=== PATIENT | female | born 1965 | race Caucasian/White ===

== ENCOUNTER 2017-02-01 10:17 | Emergency (ER) | payer OTHER ==
[~2017-02-01] VITALS: Ht 170.2 cm; Wt 140.0 kg
[2017-02-01 10:18] VITALS: BP 132/79
[2017-02-01] MEDS ORDERED: GEOD40CA2 PO (10:25)
[2017-02-01] MEDS ORDERED: PAXI20TA29 PO (10:25)
[2017-02-01] MEDS ORDERED: BREO1INH INH (10:25)
[2017-02-01] MEDS ORDERED: IBUPROFEN 800 MG TAB PO ONE (11:00)
--- NOTE | 2017-02-01 13:23 | REP ---
RIGHT WRIST, FOUR VIEWS: There is no evidence of an acute fracture, dislocation or intrinsic bone disease. IMPRESSION: No fracture or dislocation. Signed by Hector Barahona MD 02/01/2017 07:16 P
== END 2017-02-01 11:29 | disposition home or self-care (01) ==
LOC: M ED 10:17
DX: S60.211A Contusion of right wrist, initial encounter (principal); X58.XXXA Exposure to other specified factors, initial encounter; Y92.099 Unspecified place in other non-institutional residence as the place of occurrence of the external cause; Y93.9 Activity, unspecified; Y99.9 Unspecified external cause status; J45.909 Unspecified asthma, uncomplicated; F41.9 Anxiety disorder, unspecified; J43.9 Emphysema, unspecified; Z79.899 Other long term (current) drug therapy

== ENCOUNTER → 2017-03-23 | Outpatient (CLI) | payer OTHER ==
[~2017-03-23] MED LIST: BREO1INH INH; GEOD40CA2 PO; PAXI20TA29 PO
--- NOTE | 2017-03-23 15:59 | REP ---
BILATERAL MAMMOGRAM: Bilateral mammography performed in the MLO and CC projections. Comparison made with multiple prior exams the most recently 01/18/2016. Moderate heterogeneous fibroglandular tissue is again seen bilaterally. In the upper outer quadrant of the right breast there appears to be a new 6 mm nodular density. No other new mass or clustered microcalcifications are seen. Metallic clip is again seen in the upper outer quadrant of each breast. Scattered tiny calcifications are seen diffusely bilaterally. IMPRESSION: BI-RADS/ACR category 0 mammogram, incomplete. Additional imaging and/or prior mammograms for comparison. ACR 0 incomplete. New 6 mm nodular density upper outer quadrant right breast. Recommend spot compression views and ultrasound to further evaluate. This mammogram was interpreted with the aid of an FDA-approved computer-aided detection system. The patient states she has not had a clinical breast exam in over a year. The patient letter being requested is M0. Signed by Hector Barahona MD 03/23/2017 04:22 P
== END ==
LOC: M RAD 14:19
PROVIDERS: ATTEND Nurse Practitioner Adult Health
DX: Z12.31 Encounter for screening mammogram for malignant neoplasm of breast (principal); R92.8 Other abnormal and inconclusive findings on diagnostic imaging of breast

== ENCOUNTER → 2017-03-26 | Outpatient (CLI) | payer OTHER ==
--- NOTE | 2017-03-26 14:02 | REP ---
DIAGNOSTIC MAMMOGRAM RIGHT BREAST WITH RIGHT BREAST ULTRASOUND: Diagnostic mammogram right breast performed with multiple spot compression views. These confirm the presence of a well-defined round nodule at 9 -o'clock position of the right breast measuring about 6 mm in diameter. Real-time sonographic evaluation of the right breast performed in the region of 9-o'clock position. There is a simple cyst which measures 6 mm in diameter corresponding to the mammographic abnormality. This is benign. IMPRESSION: BI-RADS/ACR category 2 mammogram. Benign finding(s). Routine annual screening mammography (for women over age 40). The nodule seen at 9 -o'clock position right breast measuring 6 mm in diameter demonstrates smooth, well-defined margins and represents a simple cyst by ultrasound. This is ACR 2 benign. Recommend followup mammogram in 1 year. Patient letter M1. ? Signed by Hector Barahona MD 03/26/2017 04:56 P
== END ==
LOC: M RAD 12:41
PROVIDERS: ATTEND Nurse Practitioner Adult Health
DX: R92.8 Other abnormal and inconclusive findings on diagnostic imaging of breast (principal)
CPT/HCPCS: 76642; G0206

== ENCOUNTER → 2017-04-06 | Outpatient (REF) | payer OTHER, MEDICAID | LOC: M SMT 16:56 | PROVIDERS: ATTEND Nurse Practitioner Women's Health | DX: N39.46 Mixed incontinence (principal) ==

== ENCOUNTER → 2017-05-18 | Outpatient (CLI) | payer OTHER | LOC: M RAD 10:59 | DX: J44.9 Chronic obstructive pulmonary disease, unspecified (principal) | CPT/HCPCS: 71046 ==

== ENCOUNTER → 2017-05-19 | Outpatient (REF) | payer OTHER ==
[2017-05-19 13:59] LABS: APPEARANCE, URINE CLOUDY (CLEAR); BACTERIA, URINE AUTO NEGATIVE (NEGATIVE); BILIRUBIN, URINE AUTO NEGATIVE (NEGATIVE); BLOOD, URINE BLOOD NEGATIVE (NEGATIVE); COLOR, URINE YELLOW (YELLOW); GLUCOSE, URINE (UA) AUTO NEGATIVE (NEGATIVE); KETONE, URINE AUTO TRACE mg/dL (NEGATIVE); LEUKOCYTE ESTERASE, URINE AUTO 3+ (NEGATIVE); MUCUS, URINE SMALL (NEGATIVE); NITRITE, URINE AUTO NEGATIVE (NEGATIVE); PROTEIN, URINE AUTO NEGATIVE (NEGATIVE); RBC, URINE AUTO 13 /HPF (0-3); SPECIFIC GRAVITY URINE AUTO 1.012 (1.002-1.035); SQUAMOUS EPITHELIAL CELL UR AU 12 /HPF (0-6); UROBILINOGEN, URINE AUTO 0.2 mg/dL (0.0-2.0); WBC, URINE AUTO 10 /HPF (0-3)
== END ==
LOC: M SMT 13:36
DX: R31.29 Other microscopic hematuria (principal)

== ENCOUNTER → 2017-06-10 | Outpatient (CLI) | payer OTHER ==
[~2017-06-10] MED LIST changes: -BREO1INH INH; -GEOD40CA2 PO; +ISOVUE-370 76% 100ML VIAL (Q9967) As Ordered; -PAXI20TA29 PO
== END ==
LOC: M RAD 11:00
DX: R31.29 Other microscopic hematuria (principal)
CPT/HCPCS: Q9967

== ENCOUNTER → 2017-07-28 | Outpatient (REF) | payer OTHER, MEDICAID ==
[2017-07-28 19:06] LABS: ESTIMATED AVERAGE GLUCOSE 120 MG/DL (60-110); HEMOGLOBIN A1c 5.8 %
[2017-07-28 19:10] LABS: CHOLESTEROL LEVEL 236 MG/DL (<200); CHOLESTEROL RISK RATIO 3.746 (<5); HDL CHOLESTEROL 63 MG/DL (>40); LDL CHOLESTEROL 148.4 MG/DL (<100); NON-HDL-C 173 MG/DL; TRIGLYCERIDES LEVEL 123 MG/DL (<150)
[2017-07-28 19:11] LABS: TOTAL 25(OH) VITAMIN D 41.8 NG/ML (30.0-100.0)
== END ==
LOC: M LAB REF 17:50
DX: Z13.9 Encounter for screening, unspecified (principal)

== ENCOUNTER → 2017-08-04 | Outpatient (REF) | payer OTHER ==
[2017-08-04 18:41] LABS: APPEARANCE, URINE CLEAR (CLEAR); BACTERIA, URINE AUTO 1+ (NEGATIVE); BILIRUBIN, URINE AUTO NEGATIVE (NEGATIVE); BLOOD, URINE BLOOD NEGATIVE (NEGATIVE); COLOR, URINE YELLOW (YELLOW); GLUCOSE, URINE (UA) AUTO NEGATIVE (NEGATIVE); KETONE, URINE AUTO TRACE mg/dL (NEGATIVE); LEUKOCYTE ESTERASE, URINE AUTO 3+ (NEGATIVE); MUCUS, URINE SMALL (NEGATIVE); NITRITE, URINE AUTO NEGATIVE (NEGATIVE); PROTEIN, URINE AUTO NEGATIVE (NEGATIVE); RBC, URINE AUTO 6 /HPF (0-3); SPECIFIC GRAVITY URINE AUTO 1.017 (1.002-1.035); SQUAMOUS EPITHELIAL CELL UR AU 2 /HPF (0-6); TRANSITIONAL EPITHELIAL AUTO <1 /HPF; UROBILINOGEN, URINE AUTO 0.2 mg/dL (0.0-2.0); WBC, URINE AUTO 22 /HPF (0-3)
== END ==
LOC: M SMT 17:13
DX: N39.0 Urinary tract infection, site not specified (principal)

== ENCOUNTER 2017-11-20 12:20 | Emergency (ER) | payer OTHER | END 2017-11-20 15:00 | disposition home or self-care (01) | LOC: M ED 12:20 | DX: M43.17 Spondylolisthesis, lumbosacral region (principal); M43.16 Spondylolisthesis, lumbar region; M54.16 Radiculopathy, lumbar region; J45.909 Unspecified asthma, uncomplicated; J44.9 Chronic obstructive pulmonary disease, unspecified; F41.9 Anxiety disorder, unspecified; Z79.899 Other long term (current) drug therapy | CPT/HCPCS: 72110 ==

== ENCOUNTER → 2018-08-27 | Outpatient (CLI) | payer OTHER ==
[~2018-08-27] MED LIST changes: +BREO1INH INH; +GABA-843; +GEOD40CA13 PO; -ISOVUE-370 76% 100ML VIAL (Q9967) As Ordered; +MELO15TA28; +PAXI20TA29 PO; +ULTR50TA8 PO; +VENTAER
--- NOTE | 2018-08-27 10:30 | REP ---
LEFT SHOULDER: Three views. HISTORY: Pain. FINDINGS: Three views of the left shoulder demonstrate normal alignment of the glenohumeral and acromioclavicular joints. There is a small bone island in the humeral head on the left. Periarticular soft tissues are unremarkable. There are is a large lymph node calcification in the left hilus noted incidentally. IMPRESSION: Negative radiographs of the left shoulder. Electronically Signed by Hugh Somers MD 08/27/2018 03:11 P
== END ==
LOC: M RAD 09:29
PROVIDERS: ATTEND Nurse Practitioner Adult Health
DX: M25.512 Pain in left shoulder (principal)

== ENCOUNTER → 2018-10-13 | Outpatient (REF) | payer OTHER ==
[2018-10-13 19:34] LABS: ALBUMIN 3.6 GM/DL (3.2-5.2); ALT/SGPT 18 U/L (12-78); BILIRUBIN,TOTAL 0.1 MG/DL (0.2-1.0); BLOOD UREA NITROGEN 10 MG/DL (7-18); CALCIUM LEVEL 8.6 MG/DL (8.5-10.1); CARBON DIOXIDE LEVEL 26 MEQ/L (21-32); CHLORIDE LEVEL 105 MEQ/L (98-107); CHOLESTEROL LEVEL 176 MG/DL (<200); CHOLESTEROL RISK RATIO 2.885 (<5); CREATININE FOR GFR 0.92 MG/DL (0.55-1.30); GLOMERULAR FILTRATION RATE > 60.0 (>51); GLUCOSE, FASTING 98 MG/DL (70-100); HDL CHOLESTEROL 61 MG/DL (>40); LDL CHOLESTEROL 91 MG/DL (<100); NON-HDL-C 115 MG/DL; POTASSIUM SERUM 4.3 MEQ/L (3.5-5.1); SODIUM LEVEL 138 MEQ/L (136-145); TOTAL PROTEIN 7.3 GM/DL (6.4-8.2); TRIGLYCERIDES LEVEL 122 MG/DL (<150)
[2018-10-13 19:38] LABS: HEMOGLOBIN A1c 5.7 %
[2018-10-13 19:41] LABS: TOTAL 25(OH) VITAMIN D 31.1 NG/ML (30.0-100.0)
== END ==
LOC: M LAB REF 18:09
PROVIDERS: ATTEND Nurse Practitioner Adult Health
DX: Z13.9 Encounter for screening, unspecified (principal)

== ENCOUNTER 2019-06-01 16:39 | Emergency (ER) | payer OTHER ==
[2019-06-01] MEDS ORDERED: ONDANSETRON 4MG/2ML VIAL (J2405) IV ONE (17:30)
--- NOTE | 2019-06-01 18:02 | REP ---
Portable chest, 05:30 p.m., single AP view with the patient sitting: The lung hudson are clear. The cardiac size is normal. The sj, mediastinum, and skeletal structures are unremarkable. Prominent breast shadows superimposed the lower lung zones bilaterally. There is a left lower lobe calcified granuloma, unchanged. Impression: Negative portable chest. Comparison is 05/18/2017. Electronically Signed by Hector Christina MD 06/01/2019 05:54 P
[2019-06-01 18:15] LABS: ALBUMIN 3.3 GM/DL (3.2-5.2); ALT/SGPT 18 U/L (12-78); BILIRUBIN,DIRECT 0.2 MG/DL (0.0-0.2); BILIRUBIN,TOTAL 0.5 MG/DL (0.2-1.0); BLOOD UREA NITROGEN 8 MG/DL (7-18); CALCIUM LEVEL 9.1 MG/DL (8.5-10.1); CARBON DIOXIDE LEVEL 25 MEQ/L (21-32); CHLORIDE LEVEL 102 MEQ/L (98-107); CK-MB VALUE MASS 1.1 NG/ML (<3.6); CPK CREATINE PHOSPHOKINASE 53 U/L (26-192); CREATININE FOR GFR 0.78 MG/DL (0.55-1.30); ETHYL ALCOHOL (ETHANOL) < 0.003 % (0.000-0.010); FREE T4 1.67 NG/DL (0.76-1.46); GLOMERULAR FILTRATION RATE > 60.0 (>51); GLUCOSE, FASTING 99 MG/DL (70-100); MAGNESIUM LEVEL 2.1 MG/DL (1.8-2.4); MB/CK RELATIVE INDEX 2.08 (< OR =4); POTASSIUM SERUM 3.9 MEQ/L (3.5-5.1); SODIUM LEVEL 136 MEQ/L (136-145); TOTAL PROTEIN 7.2 GM/DL (6.4-8.2); TROPONIN I < 0.02 NG/ML (< 0.10)
[2019-06-01] MEDS ORDERED: NS 1,000 ML IV ONE (18:45)
[2019-06-01] MEDS ORDERED: RISP0.5T3 (18:46)
[2019-06-01] MEDS ORDERED: INVE156I (18:46)
[2019-06-01 19:03] LABS: BASO % 0.3 % (0.0-1.0); HEMATOCRIT 43.5 % (36.0-47.0); HEMOGLOBIN 14.5 g/dl (12.0-15.5); LYMPH # 2.4 10^3/uL (1.5-5.0); LYMPH % 17.8 % (24.0-44.0); MEAN CORPUSCULAR HEMOGLOBIN 31.5 pg (27.0-33.0); MEAN CORPUSCULAR HGB CONC 33.3 g/dl (32.0-36.5); MEAN CORPUSCULAR VOLUME 94.6 fl (80.0-96.0); MONO % 7.6 % (0.0-5.0); NEUTROPHILS # 9.9 10^3/uL (1.5-8.5); PLATELET COUNT, AUTOMATED 523 10^3/uL (150-450); WHITE BLOOD COUNT 13.4 10^3/uL (4.0-10.0)
--- NOTE | 2019-06-01 20:09 | ECGEPIP ---
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
[2019-06-01 20:48] VITALS: BP 123/74
== END 2019-06-01 20:49 | disposition home or self-care (01) ==
LOC: M ED 16:39
DX: R53.81 Other malaise (principal); R53.83 Other fatigue; R42 Dizziness and giddiness; R94.31 Abnormal electrocardiogram [ECG] [EKG]; J44.9 Chronic obstructive pulmonary disease, unspecified; N28.9 Disorder of kidney and ureter, unspecified; F41.9 Anxiety disorder, unspecified; F17.210 Nicotine dependence, cigarettes, uncomplicated; Z79.52 Long term (current) use of systemic steroids; Z79.899 Other long term (current) drug therapy
CPT/HCPCS: 71045; 80048; 80076; 82550; 82553; 83735; 84439; 84443; 85025; 93005; 93041; 94760; 96374; 99285; G0480; J2405

== ENCOUNTER → 2020-02-23 | Outpatient (REF) | payer OTHER, MEDICAID ==
[~2020-02-23] MED LIST changes: +INVE156I; +RISP0.5T3
[2020-02-23 13:46] LABS: BASO % 0.4 % (0.0-1.0); EOS % 0.1 % (0.0-3.0); HEMATOCRIT 43.3 % (36.0-47.0); HEMOGLOBIN 14.3 g/dl (12.0-15.5); LYMPH # 2.2 10^3/uL (1.5-5.0); LYMPH % 22.7 % (24.0-44.0); MEAN CORPUSCULAR HEMOGLOBIN 31.6 pg (27.0-33.0); MEAN CORPUSCULAR VOLUME 95.8 fl (80.0-96.0); MONO # 1.6 10^3/uL (0.0-0.8); MONO % 16.3 % (0.0-5.0); NEUTROPHILS # 5.7 10^3/uL (1.5-8.5); NEUTROPHILS % 60.2 % (36.0-66.0); PLATELET COUNT, AUTOMATED 261 10^3/uL (150-450); RED BLOOD COUNT 4.52 10^6/uL (4.00-5.40); WHITE BLOOD COUNT 9.5 10^3/uL (4.0-10.0)
[2020-02-23 13:53] LABS: ALBUMIN 3.9 GM/DL (3.2-5.2); BILIRUBIN,TOTAL 0.4 MG/DL (0.2-1.0); CALCIUM LEVEL 9.1 MG/DL (8.5-10.1); CHOLESTEROL RISK RATIO 2.728 (<5); CREATININE FOR GFR 1.12 MG/DL (0.55-1.30); FREE T4 1.06 NG/DL (0.76-1.46); GLOMERULAR FILTRATION RATE 53.8 (>51); THYROID STIMULATING HORMONE 1.29 uIU/ML (0.358-3.740); TOTAL PROTEIN 7.3 GM/DL (6.4-8.2)
[2020-02-23 14:31] LABS: HEMOGLOBIN A1c 5.3 %
[2020-02-23 16:11] LABS: FOLATE 8.1 NG/ML
[2020-02-23 17:48] LABS: APPEARANCE, URINE CLOUDY (CLEAR); BACTERIA, URINE AUTO 2+ (NEGATIVE); BILIRUBIN, URINE AUTO NEGATIVE (NEGATIVE); BLOOD, URINE BLOOD 1+ (NEGATIVE); COLOR, URINE AMBER (YELLOW); GLUCOSE, URINE (UA) AUTO NEGATIVE (NEGATIVE); KETONE, URINE AUTO TRACE mg/dL (NEGATIVE); LEUKOCYTE ESTERASE, URINE AUTO 3+ (NEGATIVE); MUCUS, URINE SMALL (NEGATIVE); NITRITE, URINE AUTO NEGATIVE (NEGATIVE); PROTEIN, URINE AUTO 2+ mg/dL (NEGATIVE); RBC, URINE AUTO 9 /HPF (0-3); SPECIFIC GRAVITY URINE AUTO 1.021 (1.002-1.035); SQUAMOUS EPITHELIAL CELL UR AU 52 /HPF (0-6); UROBILINOGEN, URINE AUTO 0.2 mg/dL (0.0-2.0); WBC, URINE AUTO 150 /HPF (0-3)
== END ==
LOC: M LAB REF 12:29
PROVIDERS: ATTEND Nurse Practitioner Family
DX: Z00.01 Encounter for general adult medical examination with abnormal findings (principal); Z13.9 Encounter for screening, unspecified; E78.5 Hyperlipidemia, unspecified; E55.9 Vitamin D deficiency, unspecified; F41.9 Anxiety disorder, unspecified

== ENCOUNTER → 2020-09-20 | Outpatient (REF) | payer OTHER ==
[~2020-09-20] MED LIST changes: +GABA-282; -GABA-843; +RISP-7; -RISP0.5T3
[2020-09-20 11:20] LABS: BASO % 0.4 % (0.0-1.0); EOS % 0.2 % (0.0-3.0); HEMATOCRIT 47.2 % (36.0-47.0); HEMOGLOBIN 15.7 g/dl (12.0-15.5); LYMPH # 2.3 10^3/uL (1.5-5.0); LYMPH % 22.2 % (24.0-44.0); MEAN CORPUSCULAR HEMOGLOBIN 31.5 pg (27.0-33.0); MEAN CORPUSCULAR HGB CONC 33.3 g/dl (32.0-36.5); MEAN CORPUSCULAR VOLUME 94.6 fl (80.0-96.0); MONO % 9.2 % (2.0-8.0); NEUTROPHILS % 67.7 % (36.0-66.0); PLATELET COUNT, AUTOMATED 306 10^3/uL (150-450); RED BLOOD COUNT 4.99 10^6/uL (4.00-5.40); WHITE BLOOD COUNT 10.4 10^3/uL (4.0-10.0)
[2020-09-20 11:30] LABS: HEMOGLOBIN A1c 5.4 %
[2020-09-20 11:57] LABS: ALBUMIN 4.3 GM/DL (3.2-5.2); ALT/SGPT 16 U/L (12-78); BILIRUBIN,TOTAL 0.5 MG/DL (0.2-1.0); BLOOD UREA NITROGEN 8 MG/DL (7-18); CALCIUM LEVEL 10.2 MG/DL (8.5-10.1); CARBON DIOXIDE LEVEL 30 MEQ/L (21-32); CHLORIDE LEVEL 106 MEQ/L (98-107); CHOLESTEROL LEVEL 205 MG/DL (<200); CHOLESTEROL RISK RATIO 2.628 (<5); FREE T4 1.21 NG/DL (0.76-1.46); GLOMERULAR FILTRATION RATE > 60.0 (>51); GLUCOSE, FASTING 99 MG/DL (70-100); HDL CHOLESTEROL 78 MG/DL (>40); LDL CHOLESTEROL 110 MG/DL (<100); NON-HDL-C 127 MG/DL; POTASSIUM SERUM 4.5 MEQ/L (3.5-5.1); SODIUM LEVEL 138 MEQ/L (136-145); THYROID STIMULATING HORMONE 0.911 uIU/ML (0.358-3.740); TOTAL 25(OH) VITAMIN D 23.9 NG/ML (30.0-100.0); TOTAL PROTEIN 7.9 GM/DL (6.4-8.2); TRIGLYCERIDES LEVEL 85 MG/DL (<150)
[2020-09-20 12:30] LABS: HEPATITIS C VIRUS ABY INDEX < 0.0 INDEX (<0.8)
[2020-09-20 12:31] LABS: HIV 1&2 SCREEN CENTAUR NEGATIVE (NEGATIVE)
== END ==
LOC: M LAB REF 10:47
PROVIDERS: ATTEND Nurse Practitioner Family
DX: E78.5 Hyperlipidemia, unspecified (principal); F17.200 Nicotine dependence, unspecified, uncomplicated; R51.9 Headache, unspecified; E55.9 Vitamin D deficiency, unspecified

== ENCOUNTER 2023-03-20 13:21 | Inpatient (IN) | payer OTHER ==
[~2023-03-20] VITALS: Ht 170.2 cm; Wt 52.6 kg
[2023-03-20] VITALS (17 sets, daily range): BP systolic 104–133; BP diastolic 55–79; TEMP 96.4–98.4; O2SAT 86–100
[~2023-03-20 13:21] MED LIST changes: -PAXI20TA29 PO; +PAXI20TA30 PO; -VENTAER; +VENTAER PO
[2023-03-20 14:47] LABS: RSV AMPLIFICATION NEGATIVE (NEGATIVE)
[2023-03-20] MEDS ORDERED: LEVALBUTEROL 1.25MG 0.5ML CONCENTRATE NEB NEB PRN (15:10)
[2023-03-20] MEDS ORDERED: ONDANSETRON 4MG 2ML VIAL IV PRN (15:10)
[2023-03-20] MEDS ORDERED: BISACODYL 10MG SUPP PR PRN (15:10)
[2023-03-20] MEDS ORDERED: ACETAMINOPHEN TAB 650MG DOSE (2X325MG) PO PRN (15:10)
[2023-03-20 15:17] LABS: HEMATOCRIT 40.3 % (36.0-47.0); HEMOGLOBIN 13.9 g/dl (12.0-15.5); MEAN CORPUSCULAR HEMOGLOBIN 32.6 pg (27.0-33.0); MEAN CORPUSCULAR HGB CONC 34.5 g/dl (32.0-36.5); MEAN CORPUSCULAR VOLUME 94.6 fl (80.0-96.0); PLATELET COUNT, AUTOMATED 305 10^3/uL (150-450); RED BLOOD COUNT 4.26 10^6/uL (4.00-5.40); WHITE BLOOD COUNT 9.9 10^3/uL (4.0-10.0)
[2023-03-20 15:40] LABS: PROTHROMBIN TIME 12.9 SECONDS (12.5-14.5)
[2023-03-20 15:41] LABS: PARTIAL THROMBOPLASTIN TIME 28.2 SECONDS (24.8-34.2)
[2023-03-20] MEDS ORDERED: LIDOCAINE 1% MDV 20ML VIAL SC STA (16:03)
[2023-03-20] MEDS: KCL 20MEQ IN D5/NS 1000ML 1,000 ML IV SCH (16:03)
[2023-03-20] MEDS ORDERED: MIDAZOLAM 5MG 5ML VIAL (FOR CHEST TUBE INSERTIONS) IV STA (16:03)
[2023-03-20] MEDS ORDERED: MED REC IN PROGRESS XX SCH (16:05)
[2023-03-20] MEDS ORDERED: MIDAZOLAM INJ 2MG/2ML VIAL IV STA ×2 (16:12→17:10)
[2023-03-20] MEDS ORDERED: KETOROLAC 30 MG/ML 1ML VIAL IV SCH (17:00)
[2023-03-20 17:15] LABS: BLOOD UREA NITROGEN 10 MG/DL (9-23); CALCIUM LEVEL 8.3 MG/DL (8.5-10.1); CARBON DIOXIDE LEVEL 27 MMOL/L (20-31); CHLORIDE LEVEL 105 MMOL/L (98-107); CREATININE FOR GFR 0.64 MG/DL (0.55-1.30); GLOMERULAR FILTRATION RATE > 60.0 (>51); GLUCOSE, FASTING 96 MG/DL (60-100); POTASSIUM SERUM 4.1 MMOL/L (3.5-5.1); SODIUM LEVEL 138 MMOL/L (136-145)
[2023-03-20] MEDS ORDERED: LIDOCAINE 1% MDV 20ML VIAL SC ONE (17:20)
[2023-03-20] MEDS ORDERED: INVE234I IM (17:50)
[2023-03-20] MEDS ORDERED: TRAZ-257 PO (17:50)
[2023-03-20] MEDS ORDERED: ZOLO100T PO (17:50)
[2023-03-20] MEDS ORDERED: HOME MED LIST COMPLETE! XX SCH (18:00)
[2023-03-20] MEDS: HEPARIN SOD (PORCINE) 5000UNITS/ML 1ML VIAL/SYRINGE SC SCH (20:09)
[2023-03-20] MEDS: traZODone 100 MG TAB PO SCH (20:09)
[2023-03-20] MEDS: DOCUSATE SODIUM 100MG CAPSULE PO SCH (20:10)
[2023-03-20] MEDS: ADVAIR HFA 115/21MCG INHALER INH SCH (20:22)
[2023-03-20] MEDS: LEVALBUTEROL 1.25MG 0.5ML CONCENTRATE NEB NEB SCH (20:22)
[2023-03-21] MEDS: PERCOCET 5MG/325MG TAB PO PRN
[2023-03-21] MEDS: LEVALBUTEROL 1.25MG 0.5ML CONCENTRATE NEB NEB SCH ×4 (01:37→20:28)
[2023-03-21 04:01] VITALS: BP 108/60; TEMP 98.4; O2SAT 97
[2023-03-21 05:41] LABS: BASO % 0.4 % (0.0-1.0); EOS # 0.3 10^3/uL (0.0-0.5); EOS % 4.1 % (0.0-3.0); HEMATOCRIT 34.8 % (36.0-47.0); LYMPH # 2.7 10^3/uL (1.5-5.0); LYMPH % 37.4 % (24.0-44.0); MEAN CORPUSCULAR HGB CONC 34.2 g/dl (32.0-36.5); MEAN CORPUSCULAR VOLUME 96.4 fl (80.0-96.0); MONO # 0.6 10^3/uL (0.0-0.8); MONO % 8.8 % (2.0-8.0); NEUTROPHILS # 3.6 10^3/uL (1.5-8.5); NEUTROPHILS % 49.2 % (36.0-66.0); PLATELET COUNT, AUTOMATED 267 10^3/uL (150-450); RED BLOOD COUNT 3.61 10^6/uL (4.00-5.40); WHITE BLOOD COUNT 7.3 10^3/uL (4.0-10.0)
[2023-03-21 05:43] LABS: HEMOGLOBIN 11.9 g/dl (12.0-15.5)
[2023-03-21 05:49] LABS: BLOOD UREA NITROGEN 10 MG/DL (9-23); CALCIUM LEVEL 8.2 MG/DL (8.5-10.1); CARBON DIOXIDE LEVEL 26 MMOL/L (20-31); CHLORIDE LEVEL 108 MMOL/L (98-107); CREATININE FOR GFR 0.77 MG/DL (0.55-1.30); GLOMERULAR FILTRATION RATE > 60.0 (>51); GLUCOSE, FASTING 101 MG/DL (60-100); MAGNESIUM LEVEL 1.9 MG/DL (1.8-2.4); POTASSIUM SERUM 4.3 MMOL/L (3.5-5.1); SODIUM LEVEL 141 MMOL/L (136-145)
[2023-03-21] MEDS: KCL 20MEQ IN D5/NS 1000ML 1,000 ML IV SCH (05:54)
[2023-03-21 07:35] VITALS: BP 116/60; TEMP 98.6; O2SAT 97
[2023-03-21] MEDS: ADVAIR HFA 115/21MCG INHALER INH SCH ×2 (08:36→20:28)
[2023-03-21] MEDS: SERTRALINE 100 MG TAB PO SCH (08:59)
[2023-03-21] MEDS: PANTOPRAZOLE 40MG TAB (PROTONIX) PO SCH (08:59)
[2023-03-21] MEDS: HEPARIN SOD (PORCINE) 5000UNITS/ML 1ML VIAL/SYRINGE SC SCH ×2 (09:00→20:01)
[2023-03-21] MEDS: KETOROLAC 30 MG/ML 1ML VIAL IV PRN ×2 (09:00→18:10)
[2023-03-21] MEDS ORDERED: PARoxetine 20MG TABLET PO SCH ×2 (09:00)
[2023-03-21] MEDS: DOCUSATE SODIUM 100MG CAPSULE PO SCH ×2 (09:00→20:02)
[2023-03-21] MEDS ORDERED: MOM 30ML SUSPENSION UDC PO SCH (09:00)
[2023-03-21 11:12] VITALS: BP 121/64; TEMP 97.4; O2SAT 93
[2023-03-21 16:00] VITALS: BP 108/55; TEMP 98.7; O2SAT 96
[2023-03-21 19:27] VITALS: BP 108/55; TEMP 98.3; O2SAT 96
[2023-03-21] MEDS: traZODone 100 MG TAB PO SCH (20:01)
[2023-03-21 23:48] VITALS: BP 143/66; TEMP 98.2; O2SAT 98
[2023-03-22] MEDS: PERCOCET 5MG/325MG TAB PO PRN ×3 (00:01→23:40)
[2023-03-22] MEDS: LEVALBUTEROL 1.25MG 0.5ML CONCENTRATE NEB NEB SCH ×4 (02:56→19:29)
[2023-03-22 03:47] VITALS: BP 109/48; TEMP 97.6; O2SAT 97
[2023-03-22 04:58] LABS: BASO % 0.3 % (0.0-1.0); EOS # 0.3 10^3/uL (0.0-0.5); EOS % 3.6 % (0.0-3.0); HEMATOCRIT 33.6 % (36.0-47.0); HEMOGLOBIN 11.2 g/dl (12.0-15.5); LYMPH # 2.1 10^3/uL (1.5-5.0); LYMPH % 27.7 % (24.0-44.0); MEAN CORPUSCULAR HEMOGLOBIN 32.1 pg (27.0-33.0); MEAN CORPUSCULAR HGB CONC 33.3 g/dl (32.0-36.5); MEAN CORPUSCULAR VOLUME 96.3 fl (80.0-96.0); MONO # 0.8 10^3/uL (0.0-0.8); NEUTROPHILS # 4.4 10^3/uL (1.5-8.5); NEUTROPHILS % 58.1 % (36.0-66.0); PLATELET COUNT, AUTOMATED 265 10^3/uL (150-450); RED BLOOD COUNT 3.49 10^6/uL (4.00-5.40); WHITE BLOOD COUNT 7.5 10^3/uL (4.0-10.0)
[2023-03-22 05:21] LABS: BLOOD UREA NITROGEN 10 MG/DL (9-23); CALCIUM LEVEL 8.1 MG/DL (8.5-10.1); CARBON DIOXIDE LEVEL 26 MMOL/L (20-31); CHLORIDE LEVEL 107 MMOL/L (98-107); CREATININE FOR GFR 0.72 MG/DL (0.55-1.30); GLOMERULAR FILTRATION RATE > 60.0 (>51); GLUCOSE, FASTING 118 MG/DL (60-100); MAGNESIUM LEVEL 1.8 MG/DL (1.8-2.4); POTASSIUM SERUM 4.3 MMOL/L (3.5-5.1); SODIUM LEVEL 141 MMOL/L (136-145)
[2023-03-22 07:31] VITALS: BP 97/50; TEMP 98.4; O2SAT 95
[2023-03-22] MEDS: ADVAIR HFA 115/21MCG INHALER INH SCH ×2 (07:52→19:29)
[2023-03-22] MEDS: PANTOPRAZOLE 40MG TAB (PROTONIX) PO SCH (08:20)
[2023-03-22] MEDS: SERTRALINE 100 MG TAB PO SCH (08:20)
[2023-03-22] MEDS: HEPARIN SOD (PORCINE) 5000UNITS/ML 1ML VIAL/SYRINGE SC SCH ×2 (08:20→20:05)
[2023-03-22] MEDS: DOCUSATE SODIUM 100MG CAPSULE PO SCH ×2 (08:40→20:05)
[2023-03-22 11:45] VITALS: BP 101/60; TEMP 98.2; O2SAT 95
[2023-03-22 16:00] VITALS: BP 121/59; TEMP 98.9; O2SAT 96
[2023-03-22 19:33] VITALS: BP 118/56; TEMP 98.3; O2SAT 99
[2023-03-22] MEDS: traZODone 100 MG TAB PO SCH (20:05)
[2023-03-22 23:36] VITALS: BP 121/56; TEMP 97.8; O2SAT 95
[2023-03-23] MEDS: LEVALBUTEROL 1.25MG 0.5ML CONCENTRATE NEB NEB SCH ×2 (02:01→07:55)
[2023-03-23 03:47] VITALS: BP 108/54; TEMP 98.2; O2SAT 97
[2023-03-23 04:55] LABS: BASO % 0.2 % (0.0-1.0); EOS # 0.3 10^3/uL (0.0-0.5); EOS % 2.1 % (0.0-3.0); HEMATOCRIT 35.2 % (36.0-47.0); HEMOGLOBIN 11.9 g/dl (12.0-15.5); LYMPH # 1.9 10^3/uL (1.5-5.0); LYMPH % 15.6 % (24.0-44.0); MEAN CORPUSCULAR HEMOGLOBIN 32.4 pg (27.0-33.0); MEAN CORPUSCULAR HGB CONC 33.8 g/dl (32.0-36.5); MEAN CORPUSCULAR VOLUME 95.9 fl (80.0-96.0); MONO # 1.2 10^3/uL (0.0-0.8); MONO % 9.5 % (2.0-8.0); NEUTROPHILS % 72.3 % (36.0-66.0); PLATELET COUNT, AUTOMATED 288 10^3/uL (150-450); RED BLOOD COUNT 3.67 10^6/uL (4.00-5.40); WHITE BLOOD COUNT 12.4 10^3/uL (4.0-10.0)
[2023-03-23 05:24] LABS: BLOOD UREA NITROGEN 14 MG/DL (9-23); CALCIUM LEVEL 8.6 MG/DL (8.5-10.1); CARBON DIOXIDE LEVEL 26 MMOL/L (20-31); CHLORIDE LEVEL 105 MMOL/L (98-107); CREATININE FOR GFR 0.77 MG/DL (0.55-1.30); GLOMERULAR FILTRATION RATE > 60.0 (>51); GLUCOSE, FASTING 107 MG/DL (60-100); MAGNESIUM LEVEL 1.9 MG/DL (1.8-2.4); POTASSIUM SERUM 4.6 MMOL/L (3.5-5.1); SODIUM LEVEL 140 MMOL/L (136-145)
[2023-03-23] MEDS: ADVAIR HFA 115/21MCG INHALER INH SCH (07:55)
[2023-03-23 08:00] VITALS: BP 105/50; TEMP 99.2; O2SAT 94
[2023-03-23] MEDS: HEPARIN SOD (PORCINE) 5000UNITS/ML 1ML VIAL/SYRINGE SC SCH (09:09)
[2023-03-23] MEDS: PANTOPRAZOLE 40MG TAB (PROTONIX) PO SCH (09:09)
[2023-03-23] MEDS: SERTRALINE 100 MG TAB PO SCH (09:09)
[2023-03-23] MEDS: DOCUSATE SODIUM 100MG CAPSULE PO SCH (09:09)
[2023-03-23] MEDS: PERCOCET 5MG/325MG TAB PO PRN (09:11)
[2023-03-23] MEDS ORDERED: IBUP-1114 PO (09:58)
[2023-03-23] MEDS ORDERED: OMEP-173 PO (09:58)
[2023-03-23] MEDS ORDERED: PERCOCET PO (09:58)
[2023-03-23 10:11] VITALS: BP 105/50; TEMP 99.2; O2SAT 94
[2023-03-23] MEDS ORDERED: INFLUENZA QUADRIVALENT PF VACCINE 0.5ML SYRINGE IM.IMMUN ONE (11:00)
== END 2023-03-23 12:02 | disposition home or self-care (01) | DRG 135 ==
LOC: M ED 13:21 → M ICU 15:09 → EEVIPCON 15:09 → ENRESERV 15:26
PROVIDERS: ADMIT Internal Medicine; ATTEND Internal Medicine
PROC: 0W9930Z Drainage of Right Pleural Cavity with Drainage Device, Percutaneous Approach (ICD-10-PCS; principal; 2023-03-20)
DX: S27.2XXA Traumatic hemopneumothorax, initial encounter (principal); S22.42XA Multiple fractures of ribs, left side, initial encounter for closed fracture; J45.909 Unspecified asthma, uncomplicated; J44.9 Chronic obstructive pulmonary disease, unspecified; F41.9 Anxiety disorder, unspecified; F25.9 Schizoaffective disorder, unspecified; Z79.899 Other long term (current) drug therapy; F12.90 Cannabis use, unspecified, uncomplicated; Y04.8XXA Assault by other bodily force, initial encounter

== ENCOUNTER 2023-03-29 14:36 | Inpatient (IN) | payer MEDICAID, OTHER ==
[~2023-03-29] VITALS: Ht 170.2 cm; Wt 52.9 kg
[~2023-03-29 14:36] MED LIST changes: +CURRENT HEIGHT AND WEIGHT NEEDED ON PATIENT XX SCH; +IBUP-1114 PO; +INVE234I IM; +OMEP-173 PO; +PERCOCET PO; +TRAZ-257 PO; +ZOLO100T PO
[2023-03-29] MEDS ORDERED: methylPREDNISolone 125MG 2ML VIAL IV ONE (14:45)
[2023-03-29 15:10] LABS: VENOUS BASE EXCESS 2.6 (-2.0-2.0); VENOUS HCO3 27.6 MMOL/L (23.0-27.0); VENOUS O2 SATURATION 67.5 % (60.0-80.0); VENOUS PARTIAL PRESSURE CO2 43.9 mmHg (38.0-50.0); VENOUS PARTIAL PRESSURE O2 32.7 mmHg (30.0-50.0); VENOUS PH 7.416 UNITS (7.330-7.430); VENOUS TOTAL CO2 28.9 MMOL/L (24.0-28.0)
[2023-03-29 15:18] LABS: BASO # 0.1 10^3/uL (0.0-0.2); BASO % 0.2 % (0.0-1.0); HEMATOCRIT 38.9 % (36.0-47.0); HEMOGLOBIN 13.6 g/dl (12.0-15.5); LYMPH # 1.4 10^3/uL (1.5-5.0); LYMPH % 5.8 % (24.0-44.0); MEAN CORPUSCULAR HEMOGLOBIN 32.9 pg (27.0-33.0); MONO % 7.3 % (2.0-8.0); NEUTROPHILS # 21.1 10^3/uL (1.5-8.5); NEUTROPHILS % 86.1 % (36.0-66.0); PLATELET COUNT, AUTOMATED 456 10^3/uL (150-450); RED BLOOD COUNT 4.14 10^6/uL (4.00-5.40); WHITE BLOOD COUNT 24.5 10^3/uL (4.0-10.0)
[2023-03-29 15:37] LABS: ALBUMIN 3.3 G/DL (3.2-5.2); ALKALINE PHOSPHATASE 126 U/L (46-116); ALT/SGPT 16 U/L (7.0-40); AST/SGOT 13 U/L (<34); BILIRUBIN,DIRECT < 0.1 MG/DL (<0.4); BILIRUBIN,TOTAL 0.3 MG/DL (0.3-1.2); BLOOD UREA NITROGEN 12 MG/DL (9-23); CARBON DIOXIDE LEVEL 25 MMOL/L (20-31); CHLORIDE LEVEL 101 MMOL/L (98-107); CREATININE FOR GFR 0.65 MG/DL (0.55-1.30); GLOMERULAR FILTRATION RATE > 60.0 (>51); GLUCOSE, FASTING 122 MG/DL (60-100); POTASSIUM SERUM 4.2 MMOL/L (3.5-5.1); SODIUM LEVEL 136 MMOL/L (136-145); TOTAL PROTEIN 7.2 G/DL (5.7-8.2)
[2023-03-29 15:39] LABS: THYROID STIMULATING HORMONE 1.083 uIU/ML (0.55-4.78)
[2023-03-29] MEDS ORDERED: DOXYCYCLINE HYCLATE 100MG TABLET PO ONE (15:40)
[2023-03-29] MEDS ORDERED: cefTRIAXone SOD 1 GM in D5W MINI-BAG PLUS 50 ML IV ONE (15:40)
[2023-03-29 15:46] LABS: MONO # 1.8 10^3/uL (0.0-0.8)
[2023-03-29] MEDS: IPRATROPIUM 0.5MG/ALBUTEROL 2.5MG INH SOL UD 3ML (DUONEB) NEB PRN ×3 (15:51→16:48)
[2023-03-29] MEDS ORDERED: IPRATROPIUM 0.5MG/ALBUTEROL 2.5MG INH SOL UD 3ML (DUONEB) NEB PRN (16:55)
[2023-03-29] MEDS ORDERED: MOM 30ML SUSPENSION UDC PO PRN (16:55)
[2023-03-29] MEDS ORDERED: MAALOX 30 ML SUSP *UDC PO PRN (16:55)
[2023-03-29] MEDS ORDERED: BREO1INH INH (17:30)
[2023-03-29] MEDS ORDERED: OMEP-173 PO (17:30)
[2023-03-29] MEDS ORDERED: PERCOCET PO (17:30)
[2023-03-29] MEDS ORDERED: IBUP1TAB5 PO (17:33)
[2023-03-29] MEDS ORDERED: HOME MED LIST COMPLETE! XX SCH (17:35)
[2023-03-29] MEDS: NS 1,000 ML IV SCH (18:03)
[2023-03-29 18:05] LABS: PROCALCITONIN 0.04 ng/ml
[2023-03-29 18:44] VITALS: BP 106/57; TEMP 98.3; O2SAT 93
[2023-03-29] MEDS: ADVAIR HFA 115/21MCG INHALER INH SCH (19:32)
[2023-03-29] MEDS: IPRATROPIUM 0.5MG/ALBUTEROL 2.5MG INH SOL UD 3ML (DUONEB) NEB SCH (19:32)
[2023-03-29 20:00] VITALS: BP_SYST 103; BP_SYST 114; BP_SYST 118; BP_DIAS 54; BP_DIAS 55; TEMP 97.4; TEMP 98.4; TEMP 99.4; O2SAT 94; O2SAT 98
[2023-03-29] MEDS: DOCUSATE SODIUM 100MG CAPSULE PO SCH (20:40)
[2023-03-29] MEDS: DOXYCYCLINE HYCLATE 100MG TABLET PO SCH (20:41)
[2023-03-29] MEDS: guaiFENesin ER TABLET 600 MG TAB PO SCH (20:41)
[2023-03-29] MEDS: ACETAMINOPHEN TAB 650MG DOSE (2X325MG) PO PRN (20:41)
[2023-03-29] MEDS: traZODone 100 MG TAB PO SCH (20:41)
[2023-03-29] MEDS: methylPREDNISolone 40MG 1ML VIAL IV SCH (22:23)
[2023-03-29 23:40] VITALS: BP 107/51; TEMP 98.6; O2SAT 98
[2023-03-30] MEDS: IPRATROPIUM 0.5MG/ALBUTEROL 2.5MG INH SOL UD 3ML (DUONEB) NEB SCH ×4 (01:40→19:53)
[2023-03-30 04:00] VITALS: BP 109/51; TEMP 97.7; O2SAT 98
[2023-03-30] MEDS: NS 1,000 ML IV SCH (04:31)
[2023-03-30] MEDS: methylPREDNISolone 40MG 1ML VIAL IV SCH ×2 (06:10→18:07)
[2023-03-30 06:23] LABS: BASO % 0.1 % (0.0-1.0); HEMOGLOBIN 11.8 g/dl (12.0-15.5); LYMPH # 1.2 10^3/uL (1.5-5.0); LYMPH % 6.1 % (24.0-44.0); MEAN CORPUSCULAR HEMOGLOBIN 31.6 pg (27.0-33.0); MEAN CORPUSCULAR HGB CONC 33.7 g/dl (32.0-36.5); MEAN CORPUSCULAR VOLUME 93.8 fl (80.0-96.0); MONO # 0.4 10^3/uL (0.0-0.8); MONO % 2.2 % (2.0-8.0); NEUTROPHILS # 17.4 10^3/uL (1.5-8.5); PLATELET COUNT, AUTOMATED 419 10^3/uL (150-450); RED BLOOD COUNT 3.73 10^6/uL (4.00-5.40); WHITE BLOOD COUNT 19.1 10^3/uL (4.0-10.0)
[2023-03-30 06:46] LABS: BLOOD UREA NITROGEN 10 MG/DL (9-23); CALCIUM LEVEL 8.6 MG/DL (8.5-10.1); CARBON DIOXIDE LEVEL 24 MMOL/L (20-31); CHLORIDE LEVEL 105 MMOL/L (98-107); CREATININE FOR GFR 0.57 MG/DL (0.55-1.30); GLOMERULAR FILTRATION RATE > 60.0 (>51); GLUCOSE, FASTING 126 MG/DL (60-100); POTASSIUM SERUM 4.3 MMOL/L (3.5-5.1); SODIUM LEVEL 139 MMOL/L (136-145)
[2023-03-30] MEDS: ADVAIR HFA 115/21MCG INHALER INH SCH ×2 (07:19→19:53)
[2023-03-30 07:35] VITALS: BP 108/57; TEMP 98; O2SAT 100
[2023-03-30] MEDS: DOXYCYCLINE HYCLATE 100MG TABLET PO SCH ×2 (09:12→20:35)
[2023-03-30] MEDS: ENOXAPARIN 40MG/0.4ML SYRINGE (J1650 PER 10MG) SC SCH (09:13)
[2023-03-30] MEDS: SERTRALINE 100 MG TAB PO SCH (09:13)
[2023-03-30] MEDS: DOCUSATE SODIUM 100MG CAPSULE PO SCH ×2 (09:13→20:35)
[2023-03-30] MEDS: guaiFENesin ER TABLET 600 MG TAB PO SCH ×2 (09:13→20:35)
[2023-03-30] MEDS: OMEPRAZOLE 20MG CAP PO SCH (09:13)
[2023-03-30] MEDS ORDERED: BISACODYL 10MG SUPP PR ONE (10:05)
[2023-03-30] MEDS ORDERED: BISACODYL 5MG TAB PO PRN (10:05)
[2023-03-30] MEDS: ACETAMINOPHEN TAB 650MG DOSE (2X325MG) PO PRN (10:38)
[2023-03-30 11:29] VITALS: BP 110/57; TEMP 99.3; O2SAT 90
[2023-03-30 15:35] VITALS: BP 107/56; TEMP 99.3; O2SAT 94
[2023-03-30] MEDS: cefTRIAXone SOD 1 GM in D5W MINI-BAG PLUS 50 ML IV SCH (18:08)
[2023-03-30 19:20] VITALS: BP 118/58; TEMP 98.4; O2SAT 93
[2023-03-30] MEDS: traZODone 100 MG TAB PO SCH (20:35)
[2023-03-31] VITALS (9 sets, daily range): BP systolic 121–139; BP diastolic 58–70; TEMP 97.3–98.6; O2SAT 86–95
[2023-03-31] MEDS: IPRATROPIUM 0.5MG/ALBUTEROL 2.5MG INH SOL UD 3ML (DUONEB) NEB SCH ×4 (02:40→19:17)
[2023-03-31 05:51] LABS: BASO % 0.2 % (0.0-1.0); HEMATOCRIT 34.8 % (36.0-47.0); HEMOGLOBIN 11.8 g/dl (12.0-15.5); LYMPH # 2.4 10^3/uL (1.5-5.0); MEAN CORPUSCULAR HEMOGLOBIN 32.1 pg (27.0-33.0); MEAN CORPUSCULAR HGB CONC 33.9 g/dl (32.0-36.5); MEAN CORPUSCULAR VOLUME 94.6 fl (80.0-96.0); MONO # 1.5 10^3/uL (0.0-0.8); MONO % 6.4 % (2.0-8.0); NEUTROPHILS # 19.4 10^3/uL (1.5-8.5); NEUTROPHILS % 82.7 % (36.0-66.0); PLATELET COUNT, AUTOMATED 475 10^3/uL (150-450); RED BLOOD COUNT 3.68 10^6/uL (4.00-5.40); WHITE BLOOD COUNT 23.5 10^3/uL (4.0-10.0)
[2023-03-31 06:14] LABS: BLOOD UREA NITROGEN 13 MG/DL (9-23); CALCIUM LEVEL 8.8 MG/DL (8.5-10.1); CARBON DIOXIDE LEVEL 24 MMOL/L (20-31); CHLORIDE LEVEL 106 MMOL/L (98-107); CREATININE FOR GFR 0.61 MG/DL (0.55-1.30); GLOMERULAR FILTRATION RATE > 60.0 (>51); GLUCOSE, FASTING 105 MG/DL (60-100); MAGNESIUM LEVEL 1.9 MG/DL (1.8-2.4); POTASSIUM SERUM 4.4 MMOL/L (3.5-5.1); SODIUM LEVEL 137 MMOL/L (136-145)
[2023-03-31] MEDS: methylPREDNISolone 40MG 1ML VIAL IV SCH ×2 (06:37→17:26)
[2023-03-31] MEDS: ADVAIR HFA 115/21MCG INHALER INH SCH (08:04)
[2023-03-31] MEDS ORDERED: CEFD300C42 PO (08:43)
[2023-03-31] MEDS ORDERED: PRED10TA2 PO (08:43)
[2023-03-31] MEDS ORDERED: DOXY-444 PO (08:43)
[2023-03-31] MEDS: OMEPRAZOLE 20MG CAP PO SCH (08:45)
[2023-03-31] MEDS: ACETAMINOPHEN TAB 650MG DOSE (2X325MG) PO PRN (08:45)
[2023-03-31] MEDS: ENOXAPARIN 40MG/0.4ML SYRINGE (J1650 PER 10MG) SC SCH (08:45)
[2023-03-31] MEDS: SERTRALINE 100 MG TAB PO SCH (08:46)
[2023-03-31] MEDS: guaiFENesin ER TABLET 600 MG TAB PO SCH ×2 (08:46→20:22)
[2023-03-31] MEDS: DOXYCYCLINE HYCLATE 100MG TABLET PO SCH ×2 (08:46→20:22)
[2023-03-31] MEDS: DOCUSATE SODIUM 100MG CAPSULE PO SCH ×2 (08:46→20:22)
[2023-03-31] MEDS ORDERED: ISOVUE-370 76% 100ML VIAL As Ordered ONE (10:11)
[2023-03-31 10:19] LABS: LIPASE 26 U/L (12-53)
[2023-03-31 10:20] LABS: AMYLASE 30 U/L (30-118)
[2023-03-31] MEDS ORDERED: NS 1,000 ML IV ONE (11:00)
[2023-03-31 11:12] LABS: ALBUMIN 2.9 G/DL (3.2-5.2); ALKALINE PHOSPHATASE 106 U/L (46-116); ALT/SGPT 28 U/L (7.0-40); AST/SGOT 20 U/L (<34); BILIRUBIN,DIRECT < 0.1 MG/DL (<0.4); BILIRUBIN,TOTAL 0.2 MG/DL (0.3-1.2); TOTAL PROTEIN 6.7 G/DL (5.7-8.2)
[2023-03-31] MEDS: SUCRALFATE SUSP 1GM/10ML UD PO SCH ×3 (11:55→20:22)
[2023-03-31] MEDS: LACTULOSE 20GM/30ML SYRUP UDC PO SCH ×2 (12:00→17:26)
[2023-03-31] MEDS: NS 1,000 ML IV SCH (13:02)
[2023-03-31] MEDS ORDERED: BISACODYL ENEMA 10MG/30ML PR ONE (15:00)
[2023-03-31 15:07] LABS: MYCOPLASMA PNEUMONIAE IgG 1158 U/mL (0-99); MYCOPLASMA PNEUMONIAE IgM <770 U/mL (0-769)
[2023-03-31] MEDS: cefTRIAXone SOD 1 GM in D5W MINI-BAG PLUS 50 ML IV SCH (17:26)
[2023-03-31] MEDS: ADVAIR HFA 230/21MCG INHALER INH SCH (19:16)
[2023-03-31] MEDS ORDERED: BISACODYL 10MG SUPP PR ONE (19:30)
[2023-03-31] MEDS: traZODone 100 MG TAB PO SCH (20:22)
[2023-04-01] MEDS: LACTULOSE 20GM/30ML SYRUP UDC PO SCH ×2 (00:27→06:14)
[2023-04-01] MEDS: IPRATROPIUM 0.5MG/ALBUTEROL 2.5MG INH SOL UD 3ML (DUONEB) NEB SCH ×2 (01:40→07:56)
[2023-04-01] MEDS: NS 1,000 ML IV SCH (01:44)
[2023-04-01 03:46] VITALS: BP 119/58; TEMP 98.1; O2SAT 94
[2023-04-01] MEDS: methylPREDNISolone 40MG 1ML VIAL IV SCH (06:14)
[2023-04-01] MEDS: ACETAMINOPHEN TAB 650MG DOSE (2X325MG) PO PRN (06:25)
[2023-04-01] MEDS ORDERED: ONDANSETRON 4MG 2ML VIAL IV ONE (06:35)
[2023-04-01 07:24] LABS: BASO % 0.1 % (0.0-1.0); HEMATOCRIT 35.5 % (36.0-47.0); HEMOGLOBIN 12.2 g/dl (12.0-15.5); LYMPH # 3.3 10^3/uL (1.5-5.0); LYMPH % 23.9 % (24.0-44.0); MEAN CORPUSCULAR HEMOGLOBIN 32.4 pg (27.0-33.0); MEAN CORPUSCULAR HGB CONC 34.4 g/dl (32.0-36.5); MEAN CORPUSCULAR VOLUME 94.4 fl (80.0-96.0); MONO # 1.1 10^3/uL (0.0-0.8); MONO % 8.2 % (2.0-8.0); NEUTROPHILS # 9.1 10^3/uL (1.5-8.5); NEUTROPHILS % 66.9 % (36.0-66.0); PLATELET COUNT, AUTOMATED 498 10^3/uL (150-450); RED BLOOD COUNT 3.76 10^6/uL (4.00-5.40); WHITE BLOOD COUNT 13.6 10^3/uL (4.0-10.0)
[2023-04-01] MEDS: ADVAIR HFA 230/21MCG INHALER INH SCH (07:56)
[2023-04-01 08:00] VITALS: BP 118/59; TEMP 98; O2SAT 94
[2023-04-01 08:09] LABS: BLOOD UREA NITROGEN 12 MG/DL (9-23); CALCIUM LEVEL 8.7 MG/DL (8.5-10.1); CARBON DIOXIDE LEVEL 24 MMOL/L (20-31); CHLORIDE LEVEL 106 MMOL/L (98-107); CREATININE FOR GFR 0.61 MG/DL (0.55-1.30); GLOMERULAR FILTRATION RATE > 60.0 (>51); GLUCOSE, FASTING 85 MG/DL (60-100); MAGNESIUM LEVEL 1.8 MG/DL (1.8-2.4); POTASSIUM SERUM 4.2 MMOL/L (3.5-5.1); SODIUM LEVEL 136 MMOL/L (136-145)
[2023-04-01] MEDS: DOCUSATE SODIUM 100MG CAPSULE PO SCH (08:09)
[2023-04-01] MEDS: guaiFENesin ER TABLET 600 MG TAB PO SCH (08:09)
[2023-04-01] MEDS: SERTRALINE 100 MG TAB PO SCH (08:09)
[2023-04-01] MEDS: OMEPRAZOLE 20MG CAP PO SCH (08:09)
[2023-04-01] MEDS: SUCRALFATE SUSP 1GM/10ML UD PO SCH (08:09)
[2023-04-01] MEDS: ENOXAPARIN 40MG/0.4ML SYRINGE (J1650 PER 10MG) SC SCH (08:09)
[2023-04-01] MEDS: DOXYCYCLINE HYCLATE 100MG TABLET PO SCH (08:10)
[2023-04-01] MEDS ORDERED: CARA1TAB6 PO (08:53)
[2023-04-01] MEDS ORDERED: ADV100INH INH (08:53)
[2023-04-01] MEDS ORDERED: LACT20EL PO (08:53)
[2023-04-01] MEDS ORDERED: predniSONE 20 MG TAB PO SCH (09:00)
[2023-04-01 10:36] VITALS: O2SAT 91
[2023-04-01 11:58] VITALS: BP 133/60; TEMP 98.1; O2SAT 90
[2023-04-01] MEDS ORDERED: BISACODYL ENEMA 10MG/30ML PR ONE (12:00)
[2023-04-07 12:08] LABS: CHLAMYDIA PNEUMONIAE IgM < 1:10 (< 1:10); CHLAMYDIA PSITTACI IgM < 1:10 (< 1:10); CHLAMYDIA TRACHOMATIS IgM < 1:10 (< 1:10)
== END 2023-04-01 12:09 | disposition home or self-care (01) | DRG 139 ==
LOC: M ED 14:36 → EDBD 14:36 → M ED INP 16:53 → ENRESERV 17:17 → M PCU 18:30
PROVIDERS: ADMIT Internal Medicine; ATTEND Internal Medicine
DX: J18.9 Pneumonia, unspecified organism (principal); E87.20 Acidosis, unspecified; J44.0 Chronic obstructive pulmonary disease with (acute) lower respiratory infection; F25.9 Schizoaffective disorder, unspecified; J45.901 Unspecified asthma with (acute) exacerbation; K21.9 Gastro-esophageal reflux disease without esophagitis; B34.8 Other viral infections of unspecified site; Z59.00 Homelessness unspecified; F41.9 Anxiety disorder, unspecified; G47.00 Insomnia, unspecified; K59.00 Constipation, unspecified; Z79.899 Other long term (current) drug therapy

== ENCOUNTER 2023-04-07 10:58 | Observation (INO) | payer OTHER ==
[~2023-04-07] VITALS: Ht 170.2 cm; Wt 52.8 kg
[~2023-04-07 10:58] MED LIST changes: +ADV100INH INH; +CARA1TAB6 PO; +CEFD1CAP9 PO; -CURRENT HEIGHT AND WEIGHT NEEDED ON PATIENT XX SCH; +DOXY-444 PO; +IBUP1TAB5 PO; +LACT20EL PO; +PRED10TA2 PO
[2023-04-07] MEDS ORDERED: IPRATROPIUM 0.5MG/ALBUTEROL 2.5MG INH SOL UD 3ML (DUONEB) NEB ONE (13:35)
[2023-04-07] MEDS ORDERED: ALBUTEROL SULFATE 2.5MG/0.5ML INH NEB SOLN NEB ONE (13:35)
[2023-04-07] MEDS ORDERED: methylPREDNISolone 125MG 2ML VIAL IV ONE (13:35)
[2023-04-07 13:42] LABS: BASO % 0.2 % (0.0-1.0); EOS # 0.1 10^3/uL (0.0-0.5); EOS % 1.1 % (0.0-3.0); HEMATOCRIT 42.3 % (36.0-47.0); HEMOGLOBIN 14.3 g/dl (12.0-15.5); LYMPH # 3.2 10^3/uL (1.5-5.0); LYMPH % 35.4 % (24.0-44.0); MEAN CORPUSCULAR HEMOGLOBIN 31.6 pg (27.0-33.0); MEAN CORPUSCULAR HGB CONC 33.8 g/dl (32.0-36.5); MEAN CORPUSCULAR VOLUME 93.6 fl (80.0-96.0); MONO % 10.8 % (2.0-8.0); NEUTROPHILS # 4.7 10^3/uL (1.5-8.5); NEUTROPHILS % 52.2 % (36.0-66.0); PLATELET COUNT, AUTOMATED 569 10^3/uL (150-450); RED BLOOD COUNT 4.52 10^6/uL (4.00-5.40)
[2023-04-07 13:49] LABS: VENOUS HCO3 27.7 MMOL/L (23.0-27.0); VENOUS O2 SATURATION 72.3 % (60.0-80.0); VENOUS PARTIAL PRESSURE CO2 46.9 mmHg (38.0-50.0); VENOUS PH 7.389 UNITS (7.330-7.430); VENOUS STANDARD HCO3 25.6 MMOL/L; VENOUS TOTAL CO2 29.1 MMOL/L (24.0-28.0)
[2023-04-07 14:00] LABS: ALBUMIN 3.3 G/DL (3.2-5.2); ALKALINE PHOSPHATASE 108 U/L (46-116); ALT/SGPT 19 U/L (7.0-40); AST/SGOT 10 U/L (<34); BILIRUBIN,DIRECT 0.1 MG/DL (<0.4); BILIRUBIN,TOTAL 0.4 MG/DL (0.3-1.2); BLOOD UREA NITROGEN 14 MG/DL (9-23); CALCIUM LEVEL 9.1 MG/DL (8.5-10.1); CARBON DIOXIDE LEVEL 26 MMOL/L (20-31); CHLORIDE LEVEL 101 MMOL/L (98-107); CREATININE FOR GFR 0.61 MG/DL (0.55-1.30); GLOMERULAR FILTRATION RATE > 60.0 (>51); GLUCOSE, FASTING 89 MG/DL (60-100); POTASSIUM SERUM 4.1 MMOL/L (3.5-5.1); SODIUM LEVEL 139 MMOL/L (136-145)
[2023-04-07] MEDS ORDERED: MOM 30ML SUSPENSION UDC PO PRN (17:40)
[2023-04-07] MEDS ORDERED: MED REC IN PROGRESS XX SCH (17:50)
[2023-04-07 18:21] LABS: PROCALCITONIN <0.04 ng/ml
[2023-04-07] MEDS ORDERED: MED REC CURRENTLY UNOBTAINABLE XX SCH (18:35)
[2023-04-07] MEDS: ACETAMINOPHEN TAB 650MG DOSE (2X325MG) PO PRN (18:55)
[2023-04-07] MEDS ORDERED: AZITHROMYCIN INJ 500 MG, VIAL MATE ADAPTER 1 EACH in NS 250 ML IV SCH (19:00)
[2023-04-07 20:32] VITALS: BP 128/64; TEMP 97.5; O2SAT 94
[2023-04-07] MEDS: COMBIVENT RESPIMAT 100-20MCG INHALER 4GM INH SCH (20:57)
[2023-04-07] MEDS: DOCUSATE SODIUM 100MG CAPSULE PO SCH (23:13)
[2023-04-07] MEDS: methylPREDNISolone 40MG 1ML VIAL IV SCH (23:13)
[2023-04-07] MEDS ORDERED: PRED10TA2 PO (23:59)
[2023-04-07] MEDS ORDERED: DOXY100C3 PO (23:59)
[2023-04-07] MEDS ORDERED: CEFD300C PO (23:59)
[2023-04-07] MEDS ORDERED: INVE234I IM (23:59)
[2023-04-07] MEDS ORDERED: LACT10SO3 PO (23:59)
[2023-04-07] MEDS ORDERED: CARA1TAB6 PO (23:59)
[2023-04-07] MEDS ORDERED: ADV100INH INH (23:59)
[2023-04-08] MEDS ORDERED: MED REC IN PROGRESS XX SCH
[2023-04-08] MEDS: COMBIVENT RESPIMAT 100-20MCG INHALER 4GM INH SCH ×4 (01:33→20:55)
[2023-04-08] MEDS: traZODone 100 MG TAB PO SCH ×2 (01:41→21:04)
[2023-04-08 05:22] VITALS: BP 109/55; TEMP 97.9; O2SAT 94
[2023-04-08 05:35] LABS: HEMOGLOBIN 12.4 g/dl (12.0-15.5); MEAN CORPUSCULAR HGB CONC 34.4 g/dl (32.0-36.5); MEAN CORPUSCULAR VOLUME 92.8 fl (80.0-96.0); RED BLOOD COUNT 3.88 10^6/uL (4.00-5.40); WHITE BLOOD COUNT 8.8 10^3/uL (4.0-10.0)
[2023-04-08 05:44] LABS: PLATELET COUNT, AUTOMATED 432 10^3/uL (150-450)
[2023-04-08 06:10] LABS: ALBUMIN 2.9 G/DL (3.2-5.2); ALKALINE PHOSPHATASE 93 U/L (46-116); ALT/SGPT 18 U/L (7.0-40); AST/SGOT 16 U/L (<34); BILIRUBIN,TOTAL 0.2 MG/DL (0.3-1.2); BLOOD UREA NITROGEN 13 MG/DL (9-23); CALCIUM LEVEL 8.6 MG/DL (8.5-10.1); CARBON DIOXIDE LEVEL 24 MMOL/L (20-31); CHLORIDE LEVEL 104 MMOL/L (98-107); CREATININE FOR GFR 0.52 MG/DL (0.55-1.30); GLOMERULAR FILTRATION RATE > 60.0 (>51); GLUCOSE, FASTING 124 MG/DL (60-100); POTASSIUM SERUM 4.6 MMOL/L (3.5-5.1); SODIUM LEVEL 138 MMOL/L (136-145); TOTAL PROTEIN 6.2 G/DL (5.7-8.2)
[2023-04-08] MEDS: methylPREDNISolone 40MG 1ML VIAL IV SCH ×2 (06:34→14:09)
[2023-04-08] MEDS ORDERED: LACTULOSE 20GM/30ML SYRUP UDC PO PRN (07:55)
[2023-04-08] MEDS: OMEPRAZOLE 20MG CAP PO SCH (09:13)
[2023-04-08] MEDS: SERTRALINE 100 MG TAB PO SCH (09:13)
[2023-04-08] MEDS: ENOXAPARIN 40MG/0.4ML SYRINGE (J1650 PER 10MG) SC SCH (09:13)
[2023-04-08] MEDS: DOCUSATE SODIUM 100MG CAPSULE PO SCH ×2 (09:13→21:04)
[2023-04-08] MEDS: ADVAIR HFA 45/21MCG INHALER INH SCH ×2 (09:18→20:55)
[2023-04-08] MEDS ORDERED: HOME MED LIST COMPLETE! XX SCH (09:25)
[2023-04-08] MEDS: SUCRALFATE 1 GM TAB PO SCH ×3 (11:33→21:04)
[2023-04-08] MEDS: AZITHROMYCIN 250MG TABLET PO SCH (11:33)
[2023-04-08 14:00] VITALS: BP 107/57; TEMP 97.9; O2SAT 93
[2023-04-09] MEDS ORDERED: ONDANSETRON 4MG 2ML VIAL IV PRN (02:45)
[2023-04-09] MEDS: COMBIVENT RESPIMAT 100-20MCG INHALER 4GM INH SCH ×4 (03:01→20:04)
[2023-04-09] MEDS: ADVAIR HFA 45/21MCG INHALER INH SCH ×2 (07:56→20:05)
[2023-04-09] MEDS: OMEPRAZOLE 20MG CAP PO SCH (10:05)
[2023-04-09] MEDS: SUCRALFATE 1 GM TAB PO SCH ×4 (10:05→21:04)
[2023-04-09] MEDS: DOCUSATE SODIUM 100MG CAPSULE PO SCH ×2 (10:05→21:04)
[2023-04-09] MEDS: SERTRALINE 100 MG TAB PO SCH (10:05)
[2023-04-09] MEDS: ENOXAPARIN 40MG/0.4ML SYRINGE (J1650 PER 10MG) SC SCH (10:06)
[2023-04-09] MEDS: predniSONE 20 MG TAB PO SCH (10:06)
[2023-04-09] MEDS: AZITHROMYCIN 250MG TABLET PO SCH (10:06)
[2023-04-09] MEDS: traZODone 100 MG TAB PO SCH (21:04)
[2023-04-09 21:41] VITALS: BP 108/57; TEMP 97.3; O2SAT 96
[2023-04-10] MEDS: COMBIVENT RESPIMAT 100-20MCG INHALER 4GM INH SCH ×4 (01:19→19:52)
[2023-04-10 05:33] VITALS: BP 103/53; TEMP 96.9; O2SAT 99
[2023-04-10] MEDS: ADVAIR HFA 45/21MCG INHALER INH SCH ×2 (07:54→19:52)
[2023-04-10] MEDS: ENOXAPARIN 40MG/0.4ML SYRINGE (J1650 PER 10MG) SC SCH (09:01)
[2023-04-10] MEDS: DOCUSATE SODIUM 100MG CAPSULE PO SCH ×3 (09:02→20:14)
[2023-04-10] MEDS: SERTRALINE 100 MG TAB PO SCH (09:02)
[2023-04-10] MEDS: SUCRALFATE 1 GM TAB PO SCH ×5 (09:02→20:13)
[2023-04-10] MEDS: OMEPRAZOLE 20MG CAP PO SCH (09:02)
[2023-04-10] MEDS: predniSONE 20 MG TAB PO SCH (09:02)
[2023-04-10 14:00] VITALS: BP 108/63; TEMP 97.2; O2SAT 92
[2023-04-10 19:35] VITALS: BP 115/58; TEMP 97.7; O2SAT 91
[2023-04-10] MEDS: traZODone 100 MG TAB PO SCH (20:13)
[2023-04-10] MEDS: ACETAMINOPHEN TAB 650MG DOSE (2X325MG) PO PRN (20:14)
[2023-04-11] MEDS: COMBIVENT RESPIMAT 100-20MCG INHALER 4GM INH SCH ×4 (01:19→19:54)
[2023-04-11 05:00] VITALS: BP 126/60; TEMP 97.7; O2SAT 90
[2023-04-11] MEDS: DOCUSATE SODIUM 100MG CAPSULE PO SCH ×2 (08:09→19:38)
[2023-04-11] MEDS: OMEPRAZOLE 20MG CAP PO SCH (08:09)
[2023-04-11] MEDS: predniSONE 20 MG TAB PO SCH (08:09)
[2023-04-11] MEDS: ENOXAPARIN 40MG/0.4ML SYRINGE (J1650 PER 10MG) SC SCH (08:09)
[2023-04-11] MEDS: SERTRALINE 100 MG TAB PO SCH (08:09)
[2023-04-11] MEDS: SUCRALFATE 1 GM TAB PO SCH ×4 (08:09→19:38)
[2023-04-11] MEDS: ADVAIR HFA 45/21MCG INHALER INH SCH ×2 (08:14→19:54)
[2023-04-11 14:00] VITALS: BP 102/65; TEMP 97.5; O2SAT 93
[2023-04-11] MEDS: ALBUTEROL 90 MCG/ACT 8GM HFA INHALER INH PRN (16:55)
[2023-04-11] MEDS: traZODone 100 MG TAB PO SCH (19:38)
[2023-04-11 20:05] VITALS: BP 90/55; TEMP 97.3; O2SAT 95
[2023-04-12] MEDS: COMBIVENT RESPIMAT 100-20MCG INHALER 4GM INH SCH (03:04)
[2023-04-12 06:00] VITALS: BP 110/68; TEMP 97.7; O2SAT 92
[2023-04-12] MEDS ORDERED: traZODone 100 MG TAB PO PRN (07:35)
[2023-04-12] MEDS ORDERED: COMBIVENT RESPIMAT 100-20MCG INHALER 4GM INH PRN (07:40)
[2023-04-12] MEDS: ADVAIR HFA 45/21MCG INHALER INH SCH ×2 (08:06→20:18)
[2023-04-12] MEDS: SERTRALINE 100 MG TAB PO SCH (08:36)
[2023-04-12] MEDS: predniSONE 20 MG TAB PO SCH (08:37)
[2023-04-12] MEDS: OMEPRAZOLE 20MG CAP PO SCH (08:37)
[2023-04-12] MEDS: DOCUSATE SODIUM 100MG CAPSULE PO SCH ×2 (08:37→19:39)
[2023-04-12] MEDS: ENOXAPARIN 40MG/0.4ML SYRINGE (J1650 PER 10MG) SC SCH (08:37)
[2023-04-12] MEDS: oxyBUTYnin 5 MG TAB PO SCH ×2 (08:37→19:39)
[2023-04-12] MEDS ORDERED: oxyBUTYnin 5 MG TAB PO SCH (09:00)
[2023-04-12] MEDS: ALBUTEROL 90 MCG/ACT 8GM HFA INHALER INH PRN (13:43)
[2023-04-13 06:00] VITALS: BP 112/72; TEMP 97.9; O2SAT 95
[2023-04-13] MEDS: ADVAIR HFA 45/21MCG INHALER INH SCH (07:47)
[2023-04-13] MEDS: ALBUTEROL 90 MCG/ACT 8GM HFA INHALER INH PRN (08:34)
[2023-04-13] MEDS: ENOXAPARIN 40MG/0.4ML SYRINGE (J1650 PER 10MG) SC SCH (08:47)
[2023-04-13] MEDS: OMEPRAZOLE 20MG CAP PO SCH (08:48)
[2023-04-13] MEDS: oxyBUTYnin 5 MG TAB PO SCH (08:48)
[2023-04-13] MEDS: DOCUSATE SODIUM 100MG CAPSULE PO SCH (08:48)
[2023-04-13] MEDS: predniSONE 20 MG TAB PO SCH (08:48)
[2023-04-13] MEDS: SERTRALINE 100 MG TAB PO SCH (08:48)
[2023-04-13] MEDS ORDERED: OXYB5TAB11 PO (12:14)
[2023-04-13] MEDS ORDERED: TRAZ-257 PO (12:14)
[2023-04-13] MEDS ORDERED: PRED20TA PO ×2 (12:14→12:16)
[2023-04-13] MEDS ORDERED: VENTAER PO (14:24)
== END 2023-04-13 13:18 | disposition home or self-care (01) ==
LOC: M ED 10:58 → M ED INP 17:38 → M MSPAV 20:31
PROVIDERS: ADMIT Student in an Organized Health Care Education/Training Program; ATTEND Student in an Organized Health Care Education/Training Program
DX: J44.1 Chronic obstructive pulmonary disease with (acute) exacerbation (principal); B34.1 Enterovirus infection, unspecified; N32.81 Overactive bladder; Z79.899 Other long term (current) drug therapy; Z79.52 Long term (current) use of systemic steroids; F41.9 Anxiety disorder, unspecified; F25.9 Schizoaffective disorder, unspecified; K21.9 Gastro-esophageal reflux disease without esophagitis
CPT/HCPCS: 36415; 71045; 80048; 80053; 80076; 81001; 82803; 83605; 84145; 85025; 85027; 87040; 87486; 87581; 87633; 87635; 87798; 93005; 93041; 94640; 94760; 96365; 96372; 96375; 96376; 97161; 97165; 97535; 99285; J0456; J1650; J2405; J2920; J2930; J7512